=== PATIENT | female | born 1975 | race Caucasian/White ===

== ENCOUNTER 2025-05-21 15:52 | Day surgery (SDC) | payer OTHER ==
[2025-05-21] MEDS ORDERED: methylPREDNISolone acetate IM ONE (15:53)
[2025-05-21] MEDS ORDERED: BUPIVACAINE 0.5% VIAL IJ ONE (15:53)
[2025-05-21] MEDS ORDERED: LIDOCAINE HCL 1% 50 MG/5 ML VL IJ ONE (15:53)
--- NOTE | 2025-05-21 19:31 | XRAY ---
Indication: Bilateral hip and greater trochanter bursa injection. Intraoperative fluoroscopy provided for 51 seconds. 5 digital spot image submitted for interpretation demonstrates needle tips projecting lateral to right/left femur neck and right/left greater trochanter. Small amount of contrast injected for all needle tip placement. Correlate with intraoperative findings/report.
--- NOTE | 2025-05-22 18:23 | XRAY ---
51 seconds of fluoroscopy was used in surgery for a bilateral intra-articular hip and greater trochanteric bursa injection.
== END 2025-05-21 18:05 | disposition home or self-care (01) ==
LOC: SDC-PAIN 15:52
PROVIDERS: ATTEND Psychiatry & Neurology Pain Medicine
DX: M16.0 Bilateral primary osteoarthritis of hip (principal); M70.62 Trochanteric bursitis, left hip; M70.61 Trochanteric bursitis, right hip